=== PATIENT | female | born 2000 ===

== ENCOUNTER 2021-08-19 18:19 | Emergency (ER) ==
[~2021-08-19] VITALS: Ht 165.1 cm; Wt 73.7 kg
[2021-08-19] MEDS ORDERED: NEXP1IMP SC (18:28)
== END 2021-08-19 19:40 | disposition left against medical advice (07) ==
LOC: M ED 18:19
DX: Z53.21 Procedure and treatment not carried out due to patient leaving prior to being seen by health care provider (principal)